=== PATIENT | female | born 1990 | race African-American/Black ===

== ENCOUNTER 2017-03-24 13:37 | Emergency (ER) | payer MEDICAID ==
[~2017-03-24] VITALS: Ht 157.5 cm; Wt 63.0 kg
[~2017-03-24 13:37] MED LIST: MEDR150I IM; PREN1TAB63 PO
[2017-03-24 13:46] VITALS: BP 130/76; PULSE 77; RESP 15; TEMP 98.1; O2SAT 100
--- NOTE | 2017-03-24 14:07 | PD ---
HPI Chief Complaint: Abdominal Pain Time Seen by Provider: 13:54 Travel History International Travel<30 days: No Contact w/Intl Traveler<30days: No Traveled to known affect area: No History of Present Illness HPI The patient was seen and examined in the presence of the nurse. This patient complains of pelvic pain and vaginal bleeding for 2 solid weeks but today both bleeding and pain got significantly worse, symptoms are now moderately severe. No presyncopal symptoms. She is not sure if she is . She has missed one menstrual period. No alleviating factors. Duration 5 days. No exacerbating factors. She has no vaginal discharge or fever. [facility] Past Medical History Medical History: Denies Significant Hx Diminished Hearing: No ?: Unknown LMP: 12/2016 : 2 Para: 2 Past Surgical History Surgical History: No Previous Surgery Social History Alcohol Use: No Tobacco Use: No Substance Use: No Allergies-Medications (Allergen,Severity, Reaction): Coded Allergies: No Known Allergies (Unverified Adverse Reaction, Unknown, 03/24/17) Reported Meds & Prescriptions Reported Meds & Active Scripts Active No Active Prescriptions or Reported Medications Review of Systems General / Constitutional: No: Fever Eyes: No: Visual changes HENT: No: Headaches Cardiovascular: No: Chest Pain or Discomfort Respiratory: No: Shortness of Breath Gastrointestinal: Positive: Abdominal Pain Genitourinary: Positive: Pelvic Pain, Vaginal Bleeding, No: Dysuria Musculoskeletal: No: Pain Skin: No Rash Neurologic: No: Weakness Psychiatric: No: Depression Endocrine: No: Polydipsia Hematologic/Lymphatic: No: Easy Bruising Physical Exam Narrative GENERAL: Well-nourished, well-developed patient with pelvic pain and bleeding . SKIN: Focused skin assessment reveals no rash and nodules. Skin is Warm and dry. HEAD: Atraumatic. Normocephalic. EYES: Pupils equal and round. No scleral icterus. No injection or drainage. ENT: No nasal bleeding or discharge. Mucous membranes pink and moist. NECK: Trachea midline. No JVD. CARDIOVASCULAR: Regular rate and rhythm. No murmur appreciated. RESPIRATORY: No accessory muscle use. Clear to auscultation. Breath sounds equal bilaterally. GASTROINTESTINAL: Abdomen soft, non-tender, nondistended. Hepatic and splenic margins not palpable. MUSCULOSKELETAL: No obvious deformities. No clubbing. No cyanosis. No edema. NEUROLOGICAL: Awake and alert. No obvious cranial nerve deficits. Motor grossly within normal limits. Normal speech. PSYCHIATRIC: Appropriate mood and affect; insight and judgment normal. Pelvic: Patient has 50 cc of partially clotted blood in the vault that I have suctioned out. Cervix closed. Data Data Last Documented VS Vital Signs Date Time Temp Pulse Resp B/P (MAP) Pulse Ox O2 Delivery O2 Flow Rate FiO2 03/24/17 13:46 98.1 77 15 130/76 (94) 100 Room Air Orders Orders Iv Access Insert/Monitor (03/24/17 14:01) Complete Blood Count With Diff (03/24/17 14:01) Basic Metabolic Panel (Bmp) (03/24/17 14:01) Ed Urine Pregnancytest Poc (03/24/17 14:01) Beta Hcg (Quant/Titer) (03/24/17 14:16) Us Pelvis Preg W Transvaginal (03/24/17 ) Ondansetron Inj (Zofran Inj) (03/24/17 16:30) Morphine Inj (Morphine Inj) (03/24/17 16:30) Morphine Inj (Morphine Inj) (03/24/17 16:30) Labs Laboratory Tests Test 03/24/17 14:00 White Blood Count 7.0 TH/MM3 Red Blood Count 3.88 MIL/MM3 Hemoglobin 11.6 GM/DL Hematocrit 35.8 % Mean Corpuscular Volume 92.2 FL Mean Corpuscular Hemoglobin 29.9 PG Mean Corpuscular Hemoglobin Concent 32.5 % Red Cell Distribution Width 13.6 % Platelet Count 267 TH/MM3 Mean Platelet Volume 9.9 FL Neutrophils (%) (Auto) 55.5 % Lymphocytes (%) (Auto) 34.0 % Monocytes (%) (Auto) 8.2 % Eosinophils (%) (Auto) 1.8 % Basophils (%) (Auto) 0.5 % Neutrophils # (Auto) 3.9 TH/MM3 Lymphocytes # (Auto) 2.4 TH/MM3 Monocytes # (Auto) 0.6 TH/MM3 Eosinophils # (Auto) 0.1 TH/MM3 Basophils # (Auto) 0.0 TH/MM3 CBC Comment DIFF FINAL Differential Comment Blood Urea Nitrogen 10 MG/DL Creatinine 0.73 MG/DL Random Glucose 73 MG/DL Calcium Level 8.8 MG/DL Sodium Level 140 MEQ/L Potassium Level 3.9 MEQ/L Chloride Level 108 MEQ/L Carbon Dioxide Level 28.1 MEQ/L Anion Gap 4 MEQ/L Estimat Glomerular Filtration Rate 119 ML/MIN Human Chorionic Gonadotropin, Quant 6641 MIU/ML MDM Medical Decision Making Medical Screen Exam Complete: Yes Emergency Medical Condition: Yes Medical Record Reviewed: Yes Differential Diagnosis Ectopic, fibroids, dysfunctional uterine bleeding Narrative Course I have reviewed the patient's electronic medical record. She is O- blood type IV placed CBC is normal Metabolic profile is normal Urine is positive cervical ordered a beta hCG I did a bedside transabdominal ultrasound but I cannot positively identify an intrauterine fetus Beta titer 6600 I've ordered a formal ultrasound to evaluate for ectopic which is pending. Case checked out to 5 PM physician Scripts No Active Prescriptions or Reported Meds Chintan Abdi MD Mar 24, 2017 14:07
[2017-03-24 14:22] LABS: AUTOMATED NEUTROPHIL # 3.9 TH/MM3 (1.8-7.7); BASOPHIL % 0.5 % (0.0-2.0); EOSINOPHIL # 0.1 TH/MM3 (0-0.4); EOSINOPHIL % 1.8 % (0.0-4.0); HEMATOCRIT 35.8 % (35.0-46.0); HEMOGLOBIN 11.6 GM/DL (11.6-15.3); LYMPHOCYTE # 2.4 TH/MM3 (1.0-4.8); MEAN CELL VOLUME 92.2 FL (80.0-100.0); MEAN CORPUSCULAR HEMOGLOBIN 29.9 PG (27.0-34.0); MEAN CORPUSCULAR HGB CONC 32.5 % (32.0-36.0); MEAN PLATELET VOLUME 9.9 FL (7.0-11.0); MONO % 8.2 % (0.0-8.0); MONOCYTE # 0.6 TH/MM3 (0-0.9); NEUT % 55.5 % (16.0-70.0); PLATELET COUNT 267 TH/MM3 (150-450); RED BLOOD COUNT 3.88 MIL/MM3 (4.00-5.30); RED CELL DISTRIBUTION WIDTH 13.6 % (11.6-17.2)
[2017-03-24 15:01] LABS: BICARBONATE 28.1 MEQ/L (21.0-32.0); CALCIUM 8.8 MG/DL (8.5-10.1); CREATININE 0.73 MG/DL (0.50-1.00)
[2017-03-24] MEDS ORDERED: MORPHINE SULFATE 4 MG/ML INJ IV PUSH ONE (16:30)
[2017-03-24] MEDS ORDERED: ONDANSETRON HCL 4 MG/2 ML VIAL IV ONE (16:30)
[2017-03-24] MEDS ORDERED: MORPHINE SULFATE 2 MG/ML INJ IV PUSH ONE (16:30)
--- NOTE | 2017-03-24 16:58 | RADRPT ---
EXAM DATE/TIME: 03/24/2017 15:52 [place] COMPARISON: No previous studies available for comparison. INDICATIONS : Bleeding with . Pelvic pain. LAB(S): Beta-hC MEDICAL HISTORY : . SURGICAL HISTORY : None. ENCOUNTER: Initial ACUITY: 2 weeks PAIN SCORE: 10/10 LOCATION: Bilateral pelvis MEASUREMENTS: UTERUS: 8.6 x 5.8 x 4.6 cm ENDOMETRIAL STRIPE: 9 mm RIGHT OVARY: 1.9 x 2.2 x 1.5 cm LEFT OVARY: 2.9 x 2.6 x 1.6 cm FREE FLUID: Yes FINDINGS: UTERUS: The myometrium has homogeneous echotexture without mass. There is no evidence of intrauterine pregna ncy RIGHT OVARY: Ovary contains no mass or significant cystic lesion. LEFT OVARY: Ovary contains no mass or significant cystic lesion. An 11 mm cyst is identified. MISCELLANEOUS: Small amount of fluid is seen in the cul-de-sac. CONCLUSION: 1. No evidence of intrauterine . 2. No evidence of complex adnexal masses or cysts. 3. Small amount of fluid in the cul-de-sac. Aaron Quezada MD on March 24, 2017 at 16:52 Board Certified Radiologist. This report was verified electronically.
--- NOTE | 2017-03-24 17:20 | PD ---
Physical Exam Date Seen by Provider: Mar 24, 2017 Narrative Care assumed at 1700 pending US. The patient presented with 2 weeks of vaginal bleeding which became acutely worse in the last [address] Abdi reports that her pelvic exam was basically benign in that there was no tenderness. He does report a lot of blood. No visible products of conception. Her quantitative hCG was 6600. Ultrasound was pending. Data Data Last Documented VS Vital Signs Date Time Temp Pulse Resp B/P (MAP) Pulse Ox O2 Delivery O2 Flow Rate FiO2 03/24/17 13:46 98.1 77 15 130/76 (94) 100 Room Air Orders Orders Iv Access Insert/Monitor (03/24/17 14:01) Complete Blood Count With Diff (03/24/17 14:01) Basic Metabolic Panel (Bmp) (03/24/17 14:01) Ed Urine Pregnancytest Poc (03/24/17 14:01) Beta Hcg (Quant/Titer) (03/24/17 14:16) Us Pelvis Preg W Transvaginal (03/24/17 ) Ondansetron Inj (Zofran Inj) (03/24/17 16:30) Morphine Inj (Morphine Inj) (03/24/17 16:30) Morphine Inj (Morphine Inj) (03/24/17 16:30) Rhogam Only (03/24/17 17:20) ^ Rhogam (03/24/17 17:24) Labs Laboratory Tests Test 03/24/17 14:00 White Blood Count 7.0 TH/MM3 Red Blood Count 3.88 MIL/MM3 Hemoglobin 11.6 GM/DL Hematocrit 35.8 % Mean Corpuscular Volume 92.2 FL Mean Corpuscular Hemoglobin 29.9 PG Mean Corpuscular Hemoglobin Concent 32.5 % Red Cell Distribution Width 13.6 % Platelet Count 267 TH/MM3 Mean Platelet Volume 9.9 FL Neutrophils (%) (Auto) 55.5 % Lymphocytes (%) (Auto) 34.0 % Monocytes (%) (Auto) 8.2 % Eosinophils (%) (Auto) 1.8 % Basophils (%) (Auto) 0.5 % Neutrophils # (Auto) 3.9 TH/MM3 Lymphocytes # (Auto) 2.4 TH/MM3 Monocytes # (Auto) 0.6 TH/MM3 Eosinophils # (Auto) 0.1 TH/MM3 Basophils # (Auto) 0.0 TH/MM3 CBC Comment DIFF FINAL Differential Comment Blood Urea Nitrogen 10 MG/DL Creatinine 0.73 MG/DL Random Glucose 73 MG/DL Calcium Level 8.8 MG/DL Sodium Level 140 MEQ/L Potassium Level 3.9 MEQ/L Chloride Level 108 MEQ/L Carbon Dioxide Level 28.1 MEQ/L Anion Gap 4 MEQ/L Estimat Glomerular Filtration Rate 119 ML/MIN Human Chorionic Gonadotropin, Quant 6641 MIU/ML MDM Supervised Visit with JAC: No Narrative Course Vital Signs Date Time Temp Pulse Resp B/P (MAP) Pulse Ox O2 Delivery O2 Flow Rate FiO2 03/24/17 13:46 98.1 77 15 130/76 (94) 100 Room Air CBC & BMP Diagram 03/24/17 14:00 Calcium Level 8.8 quant 6641 US: 1. No evidence of intrauterine . 2. No evidence of complex adnexal masses or cysts. 3. Small amount of fluid in the cul-de-sac. Case discussed with Dr. Treadwell who recommends bringing the patient back in 2 days for repeat quantitative hCG. I will give her RhoGam. She is O- Diagnosis Primary Impression: Threatened miscarriage Additional Impression: Rh negative state in antepartum period Patient Instructions: General Instructions, Threatened Miscarriage (DC) Additional Instruction: Return in 2 days for recheck of blood test. Med/Other Pt SpecificInfo: Prescription(s) given Scripts Hydrocodone-Acetaminophen ([place]) 5 Mg-325 Mg Tab 1 TAB PO Q4H Y for PAIN, #12 TAB 0 Refills Prov: Shamika Linares MD 03/24/17 Disposition: 01 DISCHARGE HOME Condition: Stable Shamika Linares MD Mar 24, 2017 17:20
[2017-03-24] MEDS ORDERED: NORC5TAB PO (17:26)
[2017-03-24 18:05] VITALS: BP 110/59
[2017-03-24 18:06] VITALS: BP 110/59; PULSE 76; RESP 15; TEMP 98.7; O2SAT 100
== END 2017-03-24 18:15 | disposition home or self-care (01) ==
LOC: NEPD 13:37
DX: O20.0 Threatened abortion (principal)
CPT/HCPCS: 76801; 76817; 80048; 84702; 84703; 85025; 90384; 96372; 96374; 96375; 99285; J2270; J2405; J2790